=== PATIENT | female | born 1930 | race African-American/Black ===

== ENCOUNTER → 2017-01-19 | Outpatient (CLI) | payer OTHER | END | disposition home or self-care (01) | LOC: PCVCCLINIC 13:50 | PROVIDERS: ATTEND Internal Medicine | DX: I12.9 Hypertensive chronic kidney disease with stage 1 through stage 4 chronic kidney disease, or unspecified chronic kidney disease (principal); N18.9 Chronic kidney disease, unspecified; E11.22 Type 2 diabetes mellitus with diabetic chronic kidney disease; E78.5 Hyperlipidemia, unspecified; Z90.49 Acquired absence of other specified parts of digestive tract; Z90.710 Acquired absence of both cervix and uterus; Z96.651 Presence of right artificial knee joint; Z79.82 Long term (current) use of aspirin; Z88.2 Allergy status to sulfonamides; Z91.013 Allergy to seafood | CPT/HCPCS: 80061; 93005; G0463 ==